=== PATIENT | male | born 1960 | race Caucasian/White ===

== ENCOUNTER → 2016-10-30 | Outpatient (CLI) | payer MEDICARE ==
--- NOTE | 2016-10-30 13:39 | MR ---
EXAMINATION TYPE: MR lumbar spine wo con DATE OF EXAM: 10/30/2016 12:36 PM COMPARISON: NONE HISTORY: Lumbago per order. Back pain for 8 years causing pain into bilateral buttocks and left lower extremity per patient TECHNIQUE: Multiplanar, multisequence imaging of the lumbar spine is performed without IV contrast. FINDINGS: Sagittal images of the lumbar spine show vertebral body heights and alignment to appear sat isfactory. There is prominent Schmorl node in the superior anterior L1 endplate. Multilevel disc shirlene ccation is present. There is moderate disc space narrowing L4-L5 and L5-S1 levels. Posterior disc her niations are seen at these levels on sagittal images. Additional posterior spurring is present. There is increased signal posteriorly consistent with annular tear at L4-L5 level. The conus medullaris is normal in position and signal ending at mid L1 vertebral body level. There is large hemangioma at L1 vertebral body level as well as at the S1 vertebral body level. Scattered smaller hemangiomas are pr esent. There is increased T1 and T2 signal consistent with Modic type II degenerative change at L4-L5 level. Axial images show the T12-L1 and L1-L2 levels to appear within normal limits. Axial images at L2-L3 level show mild broad disc bulge minimally effacing the anterior thecal sac and mild left-sided facet degenerative changes. Bilateral neural foramina are patent. Axial images at L3-L4 level show mild to moderate broad disc bulge effacing anterior thecal sac. Ther e is mild to moderate facet degenerative changes and ligament flavum hypertrophy bilaterally. Bilater al neural foramina are patent at this level. Axial images at the L4-L5 level show moderate to severe broad disc bulge effacing anterior thecal sac . There is mild facet degenerative changes bilaterally. There is moderate right-sided neural foramina l narrowing. Left-sided neural foramen is patent. Axial images at L5-S1 level show mild facet degenerative changes bilaterally. There is central disc p rotrusion seen. There is mild to moderate right-sided neural foraminal narrowing seen best on sagitta l image 13. Left-sided neural foramen is patent. No suspicious retroperitoneal findings are identified. IMPRESSION: Multilevel degenerative changes in the lumbar spine most pronounced in lower lumbar level s with further details as noted in body of report.
== END | disposition home or self-care (01) ==
LOC: RADMRIMAIN 11:21
PROVIDERS: ATTEND Psychiatry & Neurology Neurology
DX: M47.816 Spondylosis without myelopathy or radiculopathy, lumbar region (principal)
CPT/HCPCS: 72148